=== PATIENT | male | born 1975 | race Caucasian/White ===

== ENCOUNTER 2022-10-30 16:12 | Emergency (ER) | payer MEDICAID ==
[~2022-10-30] VITALS: Ht 162.6 cm; Wt 67.1 kg
[2022-10-30 16:26] VITALS: BP_SYST 153; PULSE 88; RESP 17; TEMP 97.3; O2SAT 97
[2022-10-30] MEDS ORDERED: LIDOCAINE 1% 10 MG/ML, 20 ML MDV ID ONE (16:45)
[2022-10-30] MEDS ORDERED: DIPHTH,PERTUSS(ACELL),TET VAC 0.5 ML VIAL (Tdap) I.M. ONE (16:45)
[2022-10-30] MEDS ORDERED: BACITRACIN 1 GM OINT TP ONE (16:45)
[2022-10-30] MEDS ORDERED: CEPH-548 PO (17:28)
[2022-10-30] MEDS ORDERED: IBUP-1969 PO (17:28)
[2022-10-30 18:44] VITALS: BP_SYST 153; PULSE 88; RESP 17; TEMP 97.3; O2SAT 97
== END 2022-10-30 17:48 | disposition home or self-care (01) ==
LOC: SED 16:12
DX: S61.213A Laceration without foreign body of left middle finger without damage to nail, initial encounter (principal); Z79.899 Other long term (current) drug therapy; W28.XXXA Contact with powered lawn mower, initial encounter; Y93.89 Activity, other specified; Y92.89 Other specified places as the place of occurrence of the external cause; Y99.8 Other external cause status
CPT/HCPCS: 99283; 73140; 90715; 12001; J2001